=== PATIENT | female | born 1970 | race Caucasian/White ===

== ENCOUNTER 2022-07-20 11:26 | Emergency (ER) | payer OTHER, SELFPAY ==
[2022-07-20 11:27] VITALS: BP 127/87; PULSE 75; RESP 16; TEMP 36.2; O2SAT 98; BMI 29.2
--- NOTE | 2022-07-20 11:43 | EX.ED.UPPERE ---
HPI History of Present Illness Chief Complaint: Upper Extremity Injury Informant: patient Onset/Context/Timing Onset: Yesterday Current Severity: Moderate Maximum Severity: Moderate Narrative Narrative: Patient presents with right wrist pain. 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 She states that she felt pain in her right wrist. She points to the carpal tunnel region and states it feels it radiates into her palm. She denies pain at her elbow or shoulder. No symptoms in the left upper extremity. PFSH PFSH Medical History no medical history no medical history Home Medications prednisone 20 mg tablet 40 mg PO DAILY #8 tabs 07/20/22 [Rx Last Taken Unknown] Allergy/AdvReac Type Severity Reaction Status Date / Time No Known Allergies Allergy Verified 07/20/22 11:32 Surgical History no surgical history Social History Smoking Status: Unknown if ever smoked ROS ROS ED Constitutional Constitutional ED: Denies chills or fever(s) Eyes Eyes: Denies change in vision or discharge from eye(s) ENT ENT ED: Denies discharge from eye(s), rhinorrhea or sore throat Cardiovascular Cardiovascular: Denies chest pain or palpitations Respiratory/Chest Respiratory/Chest: Denies cough or dyspnea Gastrointestinal Gastrointestinal: Denies abdominal pain, nausea or vomiting Genitourinary Genitourinary ED: Denies dysuria Musculoskeletal Musculoskeletal: Reports extremity pain; Denies back pain Integumentary Denies Abrasions or rash Neurologic Neurologic: Denies headache(s) or weakness Psychiatric Psychiatric: Denies anxiety or depression Allergic/Immunologic Allergic/Immunologic ED: Denies lip swelling or urticaria EXAM Physical Exam Const Vital Signs: 07/20/22 11:27 Temperature 97.1 F L Temperature Source Temporal Pulse Rate 75 Respiratory Rate 16 Blood Pressure 127/87 H Blood Pressure Mean 100 Pulse Ox 98 Oxygen Delivery Method Room Air Positive well nourished and well developed General Appearance ED: well developed HEENT Reports normocephalic and head/scalp atraumatic Eyes PERRL and EOMs intact bilaterally Neck supple Chest Wall inspection of chest normal and palpation of chest normal Resp normal respiratory effort and clear to auscultation bilaterally Cardio regular rate and regular rhythm GI normal to inspection, nondistended, normoactive bowel sounds Palpation: soft Extremity normal to inspection Extremity Narrative: Tenderness palpation of the carpal tunnel in the right wrist. No focal tenderness over the palm, elbow, shoulder. She does have increased pain with wrist extension. Neuro oriented x3 and no sensory deficits noted Sensorium / Orientation: alert Motor Exam: strength 5/5 throughout Skin no rashes or lesions noted MDM MDM MDM Narrative Medical decision making narrative: Right wrist x-rays obtained. Treatment and Re-Evaluation Narrative: Right wrist x-ray from interpretation reveals no acute fracture. Patient be treated with a course of steroids and given a Velcro cock-up splint. I do believe her presentation is consistent with carpal tunnel. Discharge Plan Triage Chief Complaint: Upper Extremity Injury ED Provider: Agustina Dawn Dx/Rx/DC Orders Clinical Impression: Carpal tunnel syndrome Instructions: ED Carpal Tunnel Syndrome Prescriptions: New prednisone 20 mg tablet 40 mg PO DAILY Qty: 8 0RF Stand Alone Forms: Work Status Form Primary Care Provider: Mic West Referrals: [facility] [Group of Physicians] - 3-5 Days Mic West MD [Primary Care Provider] - Disposition Disposition: Home, Self Care
--- NOTE | 2022-07-20 11:45 | RAD_ITS ---
STUDY: X-RAY - RIGHT WRIST REASON FOR EXAM: Female, 51 years old. pain TECHNIQUE: 3 view(s) of the wrist were obtained. COMPARISON: None. FINDINGS: Normal visualized distal radius and ulna. Normal radiocarpal articulation. Normal distal radioulnar articulation. Normal carpal bones. Normal carpal articulations. Normal carpometacarpal articulation of the thumb. Normal second through fifth carpometacarpal articulations. Normal visualized metacarpal bones. The soft tissue structures are unremarkable. There is no demonstrated acute fracture. RAD/Wrist min 3 Views IMPRESSION: Normal x-ray examination of the wrist. Electronically Signed: Angel Mcdonald MD at 12:24 EDT ,
[2022-07-20] MEDS: predniSONE 20 MG Tablet 40 MG PO (12:25)
== END 2022-07-20 13:14 | disposition home or self-care (01) ==
LOC: ED 12:12
PROVIDERS: Emergency Provider Emergency Medicine; PCP Family Medicine; Visit Provider Emergency Medicine
DX: G56.00 Carpal tunnel syndrome, unspecified upper limb (principal)
CPT/HCPCS: 73110; 99283